=== PATIENT | female | born 1940 | race Caucasian/White ===

== ENCOUNTER 2017-01-04 19:53 | Emergency (ER) | payer OTHER, MEDICARE, BC ==
[2017-01-04] MEDS ORDERED: LIDOCAINE BUFFERED 1% 50 ML SOL ONE (20:15)
[2017-01-04 20:30] LABS: BASOPHILS % (AUTO) 2 % (0-3); EOSINOPHILS % (AUTO) 5 % (0-9); HEMATOCRIT 24 % (35-47); MEAN CORPUSCULAR HGB CONC 32.9 gm/dl (32.0-36.0); MEAN CORPUSCULAR VOLUME 90 fL (81-99); MONOCYTES % (AUTO) 11.9 % (0-12)
[2017-01-04 20:37] LABS: CALCIUM 8.2 mg/dl (8.5-10.1); POTASSIUM 3.9 mMol/L (3.5-5.1)
[2017-01-04 20:49] VITALS: TEMP 98.3
[2017-01-04] MEDS ORDERED: BACITRACIN 500 U/GM OIN TOP ONE ×2 (20:50→20:59)
[2017-01-04] MEDS ORDERED: LIDOCAINE BUFFERED 1% 50 ML SOL SC ONE (20:50)
[2017-01-04 20:52] VITALS: BP 128/52; PULSE 71; RESP 18; O2SAT 99
== END 2017-01-04 21:20 | disposition home or self-care (01) | DRG 605 ==
LOC: ED 19:53
DX: S01.412A Laceration without foreign body of left cheek and temporomandibular area, initial encounter (principal); D64.9 Anemia, unspecified; S01.112A Laceration without foreign body of left eyelid and periocular area, initial encounter; W01.0XXA Fall on same level from slipping, tripping and stumbling without subsequent striking against object, initial encounter
CPT/HCPCS: 12013; 36415; 80048; 85025; 85610; 99285; A6402